=== PATIENT | male | born 1965 | race African-American/Black ===

== ENCOUNTER 2023-12-02 11:47 | Emergency (ER) | payer OTHER ==
[~2023-12-02] VITALS: Ht 175.3 cm; Wt 90.4 kg
[2023-12-02] MEDS ORDERED: CEPH500C PO (12:52)
[2023-12-02] MEDS ORDERED: TRIA0.02 TOP (12:52)
[2023-12-02 12:54] VITALS: BP 139/81; PULSE 83; RESP 18; TEMP 98.2; O2SAT 97
== END 2023-12-02 13:22 | disposition home or self-care (01) ==
LOC: ER 11:47
DX: S40.862A Insect bite (nonvenomous) of left upper arm, initial encounter (principal); S40.861A Insect bite (nonvenomous) of right upper arm, initial encounter; S10.96XA Insect bite of unspecified part of neck, initial encounter; S20.462A Insect bite (nonvenomous) of left back wall of thorax, initial encounter; T78.40XA Allergy, unspecified, initial encounter; I10 Essential (primary) hypertension; W57.XXXA Bitten or stung by nonvenomous insect and other nonvenomous arthropods, initial encounter; Y93.89 Activity, other specified; Y92.89 Other specified places as the place of occurrence of the external cause; Y99.8 Other external cause status

== ENCOUNTER 2024-10-22 14:59 | Inpatient (IN) | payer OTHER ==
[~2024-10-22] VITALS: Ht 177.8 cm; Wt 86.2 kg
[~2024-10-22 14:59] MED LIST: CEPH500C PO; TRIA0.02 TOP
--- NOTE | 2024-10-22 15:05 | ED.PDOC ---
History of Present Illness HPI Comments 56-year-old male brought by paramedics because of abdominal pain which started last night after food. Abdominal pain associated nausea vomiting. He states that he also has chest discomfort along with shortness a breath. History of CHF three heart surgeries with a valve replacement hypertension. Denies any other symptoms. Time Seen by MD: 15:00 Reviewed Notes: Nurses Notes, Medications, Allergies Information Source: Patient, Emergency Med Personnel Mode of Arrival: EMS Severity: Moderate Timing: Days Duration: Since onset Past Medical History PAST MEDICAL HISTORY: CAD, CHF, HTN Surgical History: Denies all surgeries Social History Smoker: Non-Smoker Alcohol: Denies ETOH Use Drugs: Denies Drug Use Constitutional: denies: chills, diaphoresis, fatigue, fever, malaise, sweats, weakness, others EENTM: denies: blurred vision, double vision, ear bleeding, ear discharge, ear drainage, ear pain, ear ringing, eye pain, eye redness, hearing loss, mouth pain, mouth swelling, nasal discharge, nose bleeding, nose congestion, nose pain, photophobia, tearing, throat pain, throat swelling, voice changes, others Respiratory: reports: shortness of breath; denies: cough, hemoptysis, orthopnea, SOB at rest, SOB with excertion, stridor, wheezing, others Cardiovascular: reports: chest pain; denies: dizzy spells, diaphoresis, Dyspnea on exertion, edema, irregular heart beat, left arm pain, lightheadedness, palpitations, PND, syncope, others Gastrointestinal: reports: abdominal pain, nausea, vomiting; denies: abdomen distended, blood streaked bowels, constipated, diarrhea, dysphagia, difficulty swallowing, hematemesis, melena, poor appetite, poor fluid intake, rectal bleeding, rectal pain, others Genitourinary: denies: burning, dysuria, flank pain, frequency, hematuria, incontinence, penile discharge, penile sore, pain, testicle pain, testicle swelling, urgency, others Neurological: denies: dizziness, fainting, headache, left sided numbness, left sided weakness, numbness, paresthesia, pre-existing deficit, right sided numbness, right sided weakness, seizure, speech problems, tingling, tremors, weakness, others Musculoskeletal: denies: back pain, gout, joint pain, joint swelling, muscle pain, muscle stiffness, neck pain, others Integumetry: denies: bruises, change in color, change in hair/nails, dryness, laceration, lesions, lumps, rash, wounds, others Allergic/Immunocompromised: denies: Difficulty Healing, Frequent Infections, Hives, Itching, others Hematologic/Lymphatic: denies: anemia, blood clots, easy bleeding, easy bruising, swollen glands, others Endocrine: denies: excessive hunger, excessive sweating, excessive thirst, excessive urination, flushing, intolerance to cold, intolerance to heat, unexplained weight gain, unexplained weight loss, others Psychiatric: denies: anxiety, bipolar disorder, depression, hopeless, panic disorder, schizophrenia, sleepless, suicidal, others Physical Exam General Appearance: Moderate Distress HEENT: Normal ENT Inspection, Pharynx Normal, TMs Normal Neck: Full Range of Motion, Non-Tender, Normal, Normal Inspection Respiratory: Other (Coarse breath sounds) Cardiovascular: No Edema, No JVD, No Murmur, No Gallop, Normal Peripheral Pulses, Regular Rate/Rhythm Breast Exam: Deferred Gastrointestinal: No Organomegaly, Non Tender, No Pulsatile Mass, Normal Bowel Sounds, Soft Genitalia: Deferred Pelvic: Deferred Rectal: Deferred Extremities: No calf tenderness, Normal capillary refill, Normal inspection, Normal range of motion, Non-tender, No pedal edema Musculoskeletal : Apperance: Normal Neurologic: Alert, No Motor Deficits, No Sensory Deficits Cerebellar Function: Normal Reflexes: NOT DONE Skin: Normal Color Peripheral Pulses: 3+ Radial (R), 3+ Radial (L) Lymphatic: No Adenopathy Was a procedure done? Was a procedure done?: No Differential Dx Considerations may include: CHF Electrolyte imbalance X-Ray, Labs, Meds, VS Patient alert. Complaining of chest pain shortness a breath abdominal pain nausea vomiting. Vitals stable. Answering questions. Possible gastroenteritis. History of coronary artery disease. States that he is taking a water pill. Valve surgery. Placed on oxygen. Reviewed his previous visit. Explained to the patient. Continue monitoring. Time of 1ST Reevaluation: 15:04 Reevaluation 1ST: Unchanged Patient Education/Counseling: Diagnosis, Treatment, Prognosis Family Education/Counseling: No Family Present SEPSIS Sepsis Screen Physician Orders Troponin-I Hs (10/22/24 15:00) Complete Blood Count (10/22/24 15:00) B-Type Natriuretic Peptide (10/22/24 15:00) Chest Portable (10/22/24 15:00) Urinalysis (10/22/24 15:00) Basic Metabolic Panel (10/22/24 15:00) Departure 1 Departure Time of Disposition: 15:04 Impression: Primary Impression: CHF (congestive heart failure) Qualified Codes: I50.43 - Acute on chronic combined systolic (congestive) and diastolic (congestive) heart failure Additional Impression: Gastroenteritis Disposition: ADMITTED INPATIENT Admit to: Med Surg Condition: Guarded Critical Care Note Critical Care Time?: Yes (90 min-critical care time only) Stability Stability form required: No Heart Score Heart Score: Heart Score Response (Comments) Value History Slightly Suspicious 0 EKG Normal 0 Age 45-64 1 Risk Factors >3 or Hx ASHD 2 Troponin Normal limit 0 Total 3 ERIK FREEMAN MD Oct 22, 2024 15:05
[2024-10-22 15:16] LABS: Hematocrit 44.4 % (41.0-53.0); Hemoglobin 15.2 g/dL (13.5-17.5); Mean Corpuscular Hemoglobin 32.2 pg (28.0-32.0); Mean Corpuscular Volume 94.1 fL (80.0-100.0); Nucleated Red Blood Cells % 0.0 %
[2024-10-22 15:24] LABS: Chloride 104 mmol/L (98-107); Potassium 3.6 mmol/L (3.5-5.1); Sodium 142 mmol/L (136-145)
[2024-10-22 15:25] LABS: Anion Gap 14 (5-15); Carbon Dioxide 24 mmol/L (20-31)
[2024-10-22 15:26] LABS: Calcium 10.0 mg/dL (8.7-10.4)
[2024-10-22 15:31] LABS: BUN/Creatinine Ratio 14.7 (10.0-20.0); Blood Urea Nitrogen 14 mg/dL (9-23); Glucose 134 mg/dL (74-106)
--- NOTE | 2024-10-22 15:48 | DVH ---
XY CHEST PORTABLE, HISTORY: sob COMPARISON: None None TECHNICAL DATA: 1 view of the chest was obtained. FINDINGS: Lines and tubes: None Cardiomediastinal silhouette: normal Pulmonary vasculature: normal Lung expansion: normal Lung airspace: Right basilar airspace opacity. Lung interstitium: normal Pleura: small right effusion. Pneumothorax: no Bones: Unremarkable Other: A prosthetic heart valve is seen. IMPRESSION: Right basilar airspace opacity. Small right effusion.
[2024-10-22] MEDS: ONDANSETRON HCL 4 MG/2 ML VIAL IV ONE (17:58)
[2024-10-22 18:03] LABS: Urine Protein, UAD 1+ (Negative)
[2024-10-22 18:45] VITALS: PULSE 87; RESP 20; O2SAT 97
[2024-10-22] MEDS ORDERED: DOCUSATE SOD 100 MG CAP PO PRN (18:45)
[2024-10-22] MEDS ORDERED: ACETAMINOPHEN 325 MG TAB PO PRN (18:45)
[2024-10-22] MEDS: LACTATED RINGER'S 1,000 ML IV ONE (18:45)
--- NOTE | 2024-10-22 18:51 | DVHHP2 ---
Admitting Diagnosis: Diarrhea History of Present Illness 56-year-old male brought by paramedics because of abdominal pain which started last night after food. Abdominal pain associated nausea vomiting. He states that he also has chest discomfort along with shortness a breath. History of CHF three heart surgeries with a valve replacement hypertension. Denies any other symptoms. PAST MEDICAL HISTORY: CAD, CHF, HTN Surgical History: Denies all surgeries Social History Smoker: Non-Smoker Alcohol: Denies ETOH Use Drugs: Denies Drug Use Allergies: Coded Allergies: NO KNOWN ALLERGIES (Unverified , 02/21/13) Home Meds Active Scripts Cephalexin Monohydrate (Cephalexin) 500 Mg Cap, 1 CAP PO QID, #32 CAP Prov:MICHAEL GOODSON 12/02/23 Triamcinolone Acetonide (Triamcinolone Acetonide) 0.025 % Cre, 1 APPLIC TOP BID, #30 GRAMS Prov:MICHAEL GOODSON 12/02/23 Current Medications Current Medications Medications (Trade) Dose Ordered Sig/Riley Route PRN Reason Start Time Stop Time Status Last Admin Ceftriaxone Sodium 50 ml @ 100 mls/hr DAILY IV 10/22/24 18:45 UNV Metronidazole 100 ml @ 100 mls/hr Q8H IV 10/22/24 18:45 UNV Sodium Chloride (Saline Lock Ns) 10 ml Q8HR IV 10/22/24 22:00 UNV Docusate Sodium (Colace Capsule) 100 mg BIDPRN PRN PO FOR CONSTIPATION 10/22/24 18:45 UNV Acetaminophen (Tylenol Tablet) 650 mg Q6HP PRN PO PAIN SCALE 1-3 OR TEMP>100.4 10/22/24 18:45 UNV Acetaminophen/ Hydrocodone Bitart ([place] 5/325MG Tab) 1 tab Q4HP PRN PO MODERATE PAIN (4-6 PAIN SCALE) 10/22/24 18:45 UNV Ondansetron HCl (Zofran) 4 mg Q4HP PRN IV NAUSEA / VOMITING 10/22/24 18:45 UNV Enoxaparin Sodium (Lovenox) 40 mg DAILY SC 10/23/24 10:00 UNV Vital Signs Vital Signs Date Time Temp Pulse Resp B/P (MAP) Pulse Ox O2 Delivery O2 Flow Rate FiO2 10/22/24 17:58 154/108 10/22/24 17:31 87 20 97 Room Air 10/22/24 17:31 97.4 97.4 Physical Exam Generally-59 years old male, well nourished well developed. Distress HEENT-atraumatic, normocephalic Heart-regular rate and rhythm Lungs decreased breath sounds bilaterally lower lung lim Abdomen soft, tender to palpate, nondistended Musculoskeletal-no edema cyanosis Neuro-AO x3, no focal deficit SEPSIS Sepsis Screen Date sepsis recognized/suspect: Oct 22, 2024 Time Sepsis recognized/suspect: 1731 Recent Procedure: No On Antibiotic Therapy: No Respiratory Rate >20: No Heart Rate >90: No Temp<36 C (96.8 F) or >38.3 C: No SBP <90 or MAP <65 mmHG: No New Acute Mental Status Change: No Is the patient on CPAP, BIPAP,: No Physician Orders Chest Portable (10/22/24 15:16) Ct Ab Pel Wo Con-No Oral Or Iv (10/22/24 18:37) C-Reactive Protein (10/22/24 18:37) Ceftriaxone 1gm/50ml D5w (Rocephin) (10/22/24 18:45) Metronidazole 500mg/100ml (Flagyl 500mg/ (10/22/24 18:45) Comprehensive Metabolic Panel (10/23/24 05:00) Comprehensive Metabolic Panel (10/24/24 05:00) Comprehensive Metabolic Panel (10/25/24 05:00) Comprehensive Metabolic Panel (10/26/24 05:00) Comprehensive Metabolic Panel (10/27/24 05:00) Complete Blood Count (10/23/24 05:00) Complete Blood Count (10/24/24 05:00) Complete Blood Count (10/25/24 05:00) Complete Blood Count (10/26/24 05:00) Complete Blood Count (10/27/24 05:00) Admit (10/22/24 18:37) Code Status (10/22/24 18:37) Vital Signs .PER UNIT PROTOCOL (10/22/24 18:37) Review Orders With Adm. (10/22/24 18:37) Encourage Activity As Tolerate (10/22/24 18:37) Regular Diet (10/23/24 Breakfast) Sodium Chloride Lock (Saline Lock Ns) (10/22/24 22:00) Docusate Sodium Capsule (Colace Capsule) (10/22/24 18:45) Acetaminophen Tablet (Tylenol Tablet) (10/22/24 18:45) Notify Md Of Changes From Base (10/22/24 18:37) Advance Directive (10/22/24 18:37) Patient Condition (10/22/24 18:37) Allergies (10/22/24 18:37) Hydrocodone-Acet 5/325mg Tab ([place] 32 (10/22/24 18:45) Ondansetron Hcl (Zofran) (10/22/24 18:45) Enoxaparin Sodium (Lovenox) (10/23/24 10:00) Drug Screen (10/22/24 18:37) Lactated Ringer's (10/22/24 18:45) Vital Signs Date Time Temp Pulse Resp B/P (MAP) Pulse Ox O2 Delivery O2 Flow Rate FiO2 10/22/24 17:58 154/108 10/22/24 17:31 87 20 97 Room Air 10/22/24 17:31 97.4 87 20 154/108 (123) 97 97.4 10/22/24 15:10 98.0 68 18 156/93 (114) 97 98.0 Laboratory Tests Test 10/22/24 15:07 White Blood Count 9.3 10^3/uL (4.4-10.8) Medications Medications Dose Ordered Sig/Riley Route Start Time Stop Time Status Last Admin Dose Admin Clonidine HCl 0.2 mg ONCE ONCE PO 10/22/24 17:45 10/22/24 17:50 DC 10/22/24 17:58 Ondansetron HCl 4 mg ONCE ONCE IV 10/22/24 17:45 10/22/24 17:50 DC 10/22/24 17:58 Results Labs Test 10/22/24 15:07 10/22/24 15:00 Range/Units White Blood Count 9.3 4.4-10.8 10^3/uL Red Blood Count 4.72 4.5-5.90 10^6/uL Hemoglobin 15.2 13.5-17.5 g/dL Hematocrit 44.4 41.0-53.0 % Mean Corpuscular Volume 94.1 80.0-100.0 fL Mean Corpuscular Hemoglobin 32.2 H 28.0-32.0 pg Mean Corpuscular Hemoglobin Concent 34.3 32.0-36.0 g/dL Red Cell Distribution Width 14.9 H 11.8-14.3 % Platelet Count 180 140-450 10^3/uL Mean Platelet Volume 8.2 6.9-10.8 fL Neutrophils (%) (Auto) 90.6 H 37.0-80.0 % Lymphocytes (%) (Auto) 6.2 L 10.0-50.0 % Monocytes (%) (Auto) 2.5 0.0-12.0 % Eosinophils (%) (Auto) 0.4 0.0-7.0 % Basophils (%) (Auto) 0.3 0.0-2.0 % Neutrophils # (Auto) 8.4 1.6-8.6 10 ^3/uL Lymphocytes # (Auto) 0.6 0.4-5.4 10 ^3/uL Monocytes # (Auto) 0.2 0-1.3 10 ^3/uL Eosinophils # (Auto) 0 0-0.8 10 ^3/uL Basophils # (Auto) 0 0-0.2 10 ^3/uL Nucleated Red Blood Cells 0.0 % Sodium Level 142 136-145 mmol/L Potassium Level 3.6 3.5-5.1 mmol/L Chloride Level 104 98-107 mmol/L Carbon Dioxide Level 24 20-31 mmol/L Anion Gap 14 5-15 Blood Urea Nitrogen 14 9-23 mg/dL Creatinine 0.95 0.700-1.30 mg/dL Glomerular Filtration Rate Calc 92 >90 mL/min BUN/Creatinine Ratio 14.7 10.0-20.0 Serum Glucose 134 H 74-106 mg/dL Calcium Level 10.0 8.7-10.4 mg/dL Troponin I High Sensitivity 8 </=54 ng/L B-Type Natriuretic Peptide 275.06 0-100 pg/mL Urine Color Light-yellow Yellow Urine Clarity Clear Clear Urine pH 7.0 5.0-9.0 Urine Specific [place] 1.018 1.001-1.035 Urine Protein 1+ H Negative Urine Ketones 2+ H Negative Urine Blood 1+ H Negative /uL Urine Nitrite Negative Negative Urine Bilirubin Negative Negative Urine Urobilinogen Normal Negative mg/dL Urine Leukocyte Esterase Negative Negative /uL Urine RBC 1 0 - 3 /hpf Urine Microscopic WBC 1 0-3 /HPF Urine Squamous Epithelial Cells Few <5 /hpf Urine Bacteria None seen None Seen /hpf Urine Glucose Normal Normal mg/dL Primary Diagnosis Abdomen pain rule out intra-abdominal infection Plan Check CT abdomen and pelvis to assess for intra-abdominal infection Start ceftriaxone, Flagyl. Check blood culture Check CRP, pro count stool culture Gentle hydration Resume home meds Full code Lovenox for DVT prophylaxis No GI prophylaxis needed Cardiac diet Plan discussed with: Patient Problems List: (1) Gastroenteritis Status: Acute Date of Service: Oct 22, 2024 Billing Provider: FIORELLA REDD MD Common Visit Codes: [id number] INP/OBS CARE (MOD), [id number] INP/OBS CARE (HIGH) FIORELLA REDD MD Oct 22, 2024 18:51
--- NOTE | 2024-10-22 19:31 | DVH ---
Exam: CT CT AB PEL WO CON-NO ORAL OR IV History: assess for intra-abdominal infection Comparison Study: None Technique: Multidetector spiral CT of the abdomen was performed from lung bases to pubic symphysis. Imaging was performed without IV contrast. Axial, coronal and sagittal multiplanar reformats were ob tained from the axial data set by the technologist. Radiation Dose : 1. Abdomen/Pelvis: CTDIvol 21 mGy, DLP 1177 mGy*cm. Findings: Evaluation of solid organs is limited due to lack of intravenous contrast use. Lung Bases: No acute or significant lung base finding. Normal heart size. No pleural or pericardial effusion. Liver: The liver is normal in size. No focal lesions. Gallbladder and Biliary Tree: Unremarkable Spleen: Unremarkable Pancreas: The pancreas is grossly normal in appearance. Adrenal Glands: Unremarkable Kidneys: Kidneys are grossly normal without calculi or hydronephrosis. Bladder: Grossly unremarkable for degree of distention. Bowel: The stomach is grossly normal in appearance. Concentric wall thickening throughout the transve rse colon and descending colon with adjacent fat stranding, possibly infectious/inflammatory colitis. The appendix is not visualized; however, no secondary findings of acute appendicitis identified. Ascites: Absent Lymphadenopathy: No mesenteric, retroperitoneal or periportal lymphadenopathy. Abdominal Wall and Mesentery: Unremarkable. Vasculature: The visualized abdominal aorta is normal in size and caliber. Evaluation of abdominal a nd pelvic vessels is limited due to lack of intravenous contrast. Pelvic Organs: Unremarkable Musculoskeletal: No aggressive focal bony lesions, acute fractures or dislocation. IMPRESSION: 1. Concentric wall thickening throughout the transverse colon and descending colon with adjacent fat stranding, possibly related to infectious/inflammatory colitis. Radiation optimization: All CT scans at this facility use at least one of these dose optimization jay hniques: automated exposure control mA and/or kV adjustment per patient size (includes targeted exam s where dose is matched to clinical indication) or iterative reconstruction.
[2024-10-22] MEDS: cefTRIAXone 1GM/50ML D5W 50 ML IV SCH (20:16)
[2024-10-22] MEDS: FUROSEMIDE 40 MG/4 ML VIAL IV SCH (20:19)
[2024-10-22] MEDS: SODIUM CHLOR 0.9% PF (SALINE LOCK) 10ML VIAL/SYR IV SCH (20:20)
[2024-10-22 22:00] VITALS: BP 125/84; PULSE 96; RESP 17; TEMP 98.2; O2SAT 93
[2024-10-22 22:01] VITALS: PULSE 96; RESP 17; O2SAT 93
[2024-10-22] MEDS: HYDROcodone-ACET 5/325MG TAB PO PRN (22:15)
[2024-10-22 22:23] LABS: Amphetamine Screen, Urine Neg (NEGATIVE); Barbiturate Scree,Urine Neg (NEGATIVE); Benzodiazephine Screen, Urine Neg (NEGATIVE); Cannabinoid Screen, Urine Pos (NEGATIVE); Cocaine Screen, Urine Neg (NEGATIVE); Opiate Scree,Urine Neg (NEGATIVE); Phencyclidine Screen, Urine Neg (NEGATIVE)
[2024-10-23] VITALS (7 sets, daily range): BP systolic 102–139; BP diastolic 57–90; PULSE 69–83; RESP 16–18; TEMP 97.8–98.5; O2SAT 95–97
[2024-10-23 05:40] LABS: Hematocrit 41.3 % (41.0-53.0); Hemoglobin 14.3 g/dL (13.5-17.5); Mean Corpuscular Hemoglobin 33.0 pg (28.0-32.0); Mean Corpuscular Volume 94.9 fL (80.0-100.0); Nucleated Red Blood Cells % 0.1 %
[2024-10-23 05:58] LABS: Alanine Aminotransferase 15 U/L (7-40); Albumin 4.5 g/dL (3.2-4.8); Alkaline Phosphatase 60 U/L (46-116); Anion Gap 11 (5-15); BUN/Creatinine Ratio 15.0 (10.0-20.0); Bilirubin, Total 0.8 mg/dL (0.2-1.0); Blood Urea Nitrogen 18 mg/dL (9-23); Calcium 9.8 mg/dL (8.7-10.4); Carbon Dioxide 28 mmol/L (20-31); Chloride 100 mmol/L (98-107); Sodium 139 mmol/L (136-145); Total Protein 7.4 g/dL (5.7-8.2)
[2024-10-23 06:00] LABS: Glucose 128 mg/dL (74-106); Potassium 3.0 mmol/L (3.5-5.1)
[2024-10-23] MEDS: ONDANSETRON HCL 4 MG/2 ML VIAL IV PRN (09:22)
[2024-10-23] MEDS: ENOXAPARIN SOD 40 MG/0.4 ML SYRINGE SC SCH (09:22)
[2024-10-23] MEDS ORDERED: POTASSIUM CHLORIDE 40 MEQ, LIDOCAINE 1% (LOCAL ANESTH.) 4 ML in SODIUM CHL 0.9% 250 ML IV ONE (10:30)
--- NOTE | 2024-10-23 10:35 | DVHPN2 ---
Subjective Continues to complain of nausea and vomiting with abdominal pain Reviewed: Care Plan, H&P, Labs, Medications, Previous Orders, Radiology Changes from previous H/P or p: No Changes Objective Vitals Vital Signs Date Time Temp Pulse Resp B/P (MAP) Pulse Ox O2 Delivery O2 Flow Rate FiO2 10/23/24 09:24 139/90 10/23/24 09:00 98.0 69 18 97 98.0 10/22/24 22:01 Room Air* 0 21 Intake/Output Intake and Output 10/23/24 07:00 Intake Total 500 ml Balance 500 ml Intake Oral 400 ml IV Total 100 ml # Voids 3 General Appearance: Alert, Oriented X3, Cooperative, mild distress HEENT: Atraumatic Lungs: Clear to auscultation, Normal air movement Cardiovascular: Regular rate, Normal S1, Normal S2, Other (Unable to appreciate prostatic heart sounds) Abdomen: Normal bowel sounds, Soft, Other (Diffuse tenderness) Extremities: No edema Neuro: Normal speech, Cranial nerves 3-12 NL Psych/Mental Status: Mental status NL, Mood NL Medications Current Medications Medications Dose Ordered Sig/Riley Route Start Time Stop Time Status Last Admin Dose Admin Ceftriaxone Sodium 50 ml @ 100 mls/hr DAILY IV 10/22/24 18:45 10/23/24 09:21 100 MLS/HR Metronidazole 100 ml @ 100 mls/hr Q8H IV 10/22/24 18:45 10/23/24 02:33 100 MLS/HR Sodium Chloride 10 ml Q8HR IV 10/22/24 22:00 10/23/24 06:09 10 ML Docusate Sodium 100 mg BIDPRN PRN PO 10/22/24 18:45 Acetaminophen 650 mg Q6HP PRN PO 10/22/24 18:45 Acetaminophen/ Hydrocodone Bitart 1 tab Q4HP PRN PO 10/22/24 18:45 10/23/24 09:24 1 TAB Ondansetron HCl 4 mg Q4HP PRN IV 10/22/24 18:45 10/23/24 09:22 4 MG Enoxaparin Sodium 40 mg DAILY SC 10/23/24 10:00 10/23/24 09:22 40 MG Furosemide 40 mg DAILY IV 10/22/24 19:00 10/22/24 20:19 40 MG Laboratory Results Laboratory Tests 10/23/24 05:20 Chemistry Test 10/22/24 15:07 10/23/24 05:20 Calcium Level 10.0 mg/dL (8.7-10.4) 9.8 mg/dL (8.7-10.4) Albumin 4.5 g/dL (3.2-4.8) Total Protein 7.4 g/dL (5.7-8.2) Cardiac Markers Test 10/22/24 15:07 B-Type Natriuretic Peptide 275.06 pg/mL (0-100) LFT Test 10/23/24 05:20 Alanine Aminotransferase (ALT) 15 U/L (7-40) Alkaline Phosphatase 60 U/L (46-116) Aspartate Amino Transferase (AST) 24 U/L (13-40) Total Bilirubin 0.8 mg/dL (0.2-1.0) Urinalysis Test 10/22/24 15:00 Urine Color Light-yellow (Yellow) Urine Clarity Clear (Clear) Urine pH 7.0 (5.0-9.0) Urine Specific [place] 1.018 (1.001-1.035) Urine Protein 1+ (Negative) H Urine Ketones 2+ (Negative) H Urine Blood 1+ /uL (Negative) H Urine Nitrite Negative (Negative) Urine Bilirubin Negative (Negative) Urine Urobilinogen Normal mg/dL (Negative) Urine Leukocyte Esterase Negative /uL (Negative) Urine RBC 1 /hpf (0 - 3) Urine Microscopic WBC 1 /HPF (0-3) Urine Squamous Epithelial Cells Few /hpf (<5) Urine Bacteria None seen /hpf (None Seen) Urine Glucose Normal mg/dL (Normal) Labs and/or images reviewed: Labs reviewed by me, Image(s) reviewed by me Assessment/Plan Assessment/Plan A 59-year-old male patient; with marijuana use disorder, congestive heart failure and valve replacement; who presented to the emergency department with abdominal pain, nausea, and vomiting after eating food. # Abdominal pain, nausea and vomiting due to colitis # Colitis; most likely infectious # Congestive heart failure with valve replacement; not in exacerbation # Hypokalemia due to GI losses # Overweight Continue IV antibiotics Advance diet as tolerated Reviewed abdomen/pelvis CT and chest x-ray Chest x-ray showed suspected right lower lobe obesity; the patient is with no respiratory symptoms/signs Continue pain management as needed Advised to follow up with Cardiology as outpatient Replace electrolytes as needed Counseled marijuana use cessation for 16 minutes Counseled the patient on the importance of adopting healthy lifestyle with diet and exercise in order to lose weight Stopped IV Lasix Continue monitoring Goals of care discussed with the patient for 20 minutes; full code Late Entry. This medical document was created using an electronic medical record system with computerized dictation system. Although this document has been carefully reviewed, there might still be some phonetic and typographical errors. These areas are purely typographical due to imperfections of the software programs, and do not reflect any compromise in the patient's medical care. Plan discussed with: Patient, Other (Nurse) Date of Service: Oct 23, 2024 Billing Provider: KWAKU MORA MD Common Visit Codes: [id number] INP/OBS CARE(HIGH) Secondary Visit Codes: [id number] CHNG SMOKING >10MIN (16 minutes for marijuana use cessation), [id number] CARE PLAN 30 MINUTES (20 minutes) KWAKU MORA MD Oct 23, 2024 10:35
[2024-10-23] MEDS: POTASSIUM EFFERVESENT TAB 25 MEQ PO ONE (12:04)
[2024-10-24 01:00] VITALS: BP 127/92; PULSE 86; RESP 16; TEMP 98.4; O2SAT 96
[2024-10-24 05:00] VITALS: BP 131/82; PULSE 76; RESP 18; TEMP 98; O2SAT 95
[2024-10-24 06:23] LABS: Hematocrit 42.3 % (41.0-53.0); Hemoglobin 14.5 g/dL (13.5-17.5); Mean Corpuscular Hemoglobin 32.6 pg (28.0-32.0); Mean Corpuscular Volume 94.9 fL (80.0-100.0); Nucleated Red Blood Cells % 0.0 %
[2024-10-24 06:46] LABS: Alanine Aminotransferase 17 U/L (7-40); Alkaline Phosphatase 59 U/L (46-116); Anion Gap 8 (5-15); BUN/Creatinine Ratio 11.8 (10.0-20.0); Blood Urea Nitrogen 14 mg/dL (9-23); Calcium 9.7 mg/dL (8.7-10.4); Carbon Dioxide 30 mmol/L (20-31); Chloride 101 mmol/L (98-107); Potassium 3.6 mmol/L (3.5-5.1); Sodium 139 mmol/L (136-145)
[2024-10-24 06:47] LABS: Albumin 4.2 g/dL (3.2-4.8); Total Protein 7.0 g/dL (5.7-8.2)
[2024-10-24 06:48] LABS: Bilirubin, Total 0.7 mg/dL (0.2-1.0)
[2024-10-24 06:55] LABS: Glucose 109 mg/dL (74-106)
--- NOTE | 2024-10-24 08:15 | DVHPN2 ---
Subjective Continues to complain of nausea and vomiting with abdominal pain Reviewed: Care Plan, H&P, Labs, Medications, Previous Orders, Radiology Changes from previous H/P or p: No Changes Objective Vitals Vital Signs Date Time Temp Pulse Resp B/P (MAP) Pulse Ox O2 Delivery O2 Flow Rate FiO2 10/24/24 05:00 98.0 76 18 131/82 (98) 95 98.0 10/23/24 20:00 Room Air* 0 21 Intake/Output Intake and Output 10/24/24 07:00 Intake Total 2285 ml Output Total 380 ml Balance 1905 ml Intake Oral 2035 ml IV Total 250 ml Output Urine Total 380 ml # Voids 3 General Appearance: Alert, Oriented X3, Cooperative, mild distress HEENT: Atraumatic Lungs: Clear to auscultation, Normal air movement Cardiovascular: Regular rate, Normal S1, Normal S2, Other (Unable to appreciate prostatic heart sounds) Abdomen: Normal bowel sounds, Soft, Other (Diffuse tenderness) Extremities: No edema Neuro: Normal speech, Cranial nerves 3-12 NL Psych/Mental Status: Mental status NL, Mood NL Medications Current Medications Medications Dose Ordered Sig/Riley Route Start Time Stop Time Status Last Admin Dose Admin Ceftriaxone Sodium 50 ml @ 100 mls/hr DAILY IV 10/22/24 18:45 10/23/24 09:21 100 MLS/HR Metronidazole 100 ml @ 100 mls/hr Q8H IV 10/22/24 18:45 10/24/24 02:16 100 MLS/HR Sodium Chloride 10 ml Q8HR IV 10/22/24 22:00 10/24/24 05:23 10 ML Docusate Sodium 100 mg BIDPRN PRN PO 10/22/24 18:45 Acetaminophen 650 mg Q6HP PRN PO 10/22/24 18:45 Acetaminophen/ Hydrocodone Bitart 1 tab Q4HP PRN PO 10/22/24 18:45 10/23/24 09:24 1 TAB Ondansetron HCl 4 mg Q4HP PRN IV 10/22/24 18:45 10/23/24 09:22 4 MG Enoxaparin Sodium 40 mg DAILY SC 10/23/24 10:00 10/23/24 09:22 40 MG Laboratory Results Laboratory Tests 10/24/24 05:45 Chemistry Test 10/24/24 05:45 Albumin 4.2 g/dL (3.2-4.8) Calcium Level 9.7 mg/dL (8.7-10.4) Total Protein 7.0 g/dL (5.7-8.2) LFT Test 10/24/24 05:45 Alanine Aminotransferase (ALT) 17 U/L (7-40) Alkaline Phosphatase 59 U/L (46-116) Aspartate Amino Transferase (AST) 22 U/L (13-40) Total Bilirubin 0.7 mg/dL (0.2-1.0) Urinalysis Test 10/22/24 15:00 Urine Color Light-yellow (Yellow) Urine Clarity Clear (Clear) Urine pH 7.0 (5.0-9.0) Urine Specific [place] 1.018 (1.001-1.035) Urine Protein 1+ (Negative) H Urine Ketones 2+ (Negative) H Urine Blood 1+ /uL (Negative) H Urine Nitrite Negative (Negative) Urine Bilirubin Negative (Negative) Urine Urobilinogen Normal mg/dL (Negative) Urine Leukocyte Esterase Negative /uL (Negative) Urine RBC 1 /hpf (0 - 3) Urine Microscopic WBC 1 /HPF (0-3) Urine Squamous Epithelial Cells Few /hpf (<5) Urine Bacteria None seen /hpf (None Seen) Urine Glucose Normal mg/dL (Normal) Labs and/or images reviewed: Labs reviewed by me, Image(s) reviewed by me Assessment/Plan Assessment/Plan A 59-year-old male patient; with marijuana use disorder, congestive heart failure and valve replacement; who presented to the emergency department with abdominal pain, nausea, and vomiting after eating food. # Abdominal pain, nausea and vomiting due to colitis # Colitis; most likely infectious # Congestive heart failure with valve replacement; not in exacerbation # Hypokalemia due to GI losses # Overweight Continue IV antibiotics Unable to advance diet at this time due to abdominal pain, nausea and vomiting; counseled the patient to try taking small amount of food void abdominal pain/nausea/during [place] Reviewed abdomen/pelvis CT and chest x-ray Chest x-ray showed suspected right lower lobe opacity about abdomen/pelvis CT does not show any opacity in lung bases; the patient is with no respiratory symptoms/signs Continue pain management as needed Advised to follow up with Cardiology as outpatient Replace electrolytes as needed Counseled marijuana use cessation Counseled the patient on the importance of adopting healthy lifestyle with diet and exercise in order to lose weight Stopped IV Lasix Continue monitoring Late Entry. This medical document was created using an electronic medical record system with computerized dictation system. Although this document has been carefully reviewed, there might still be some phonetic and typographical errors. These areas are purely typographical due to imperfections of the software programs, and do not reflect any compromise in the patient's medical care. Plan discussed with: Patient, Other (Nurse) My Orders Orders - KWAKU MORA MD Procedure Category Date Status Time Basic Metabolic Panel LAB 10/25/24 Verified 04:00 Date of Service: Oct 24, 2024 Billing Provider: KWAKU MORA MD Common Visit Codes: [id number] INP/OBS CARE(HIGH) KWAKU MORA MD Oct 24, 2024 08:15
[2024-10-24 09:00] VITALS: BP 134/97; PULSE 18; PULSE 96; RESP 18; RESP 96; TEMP 98.3; O2SAT 96
[2024-10-24 12:37] VITALS: BP 147/97; PULSE 84; RESP 18; TEMP 98.4; O2SAT 97
[2024-10-24 16:41] VITALS: BP 121/75; PULSE 77; RESP 16; TEMP 98.2; O2SAT 99
[2024-10-24 21:00] VITALS: BP 123/83; PULSE 86; RESP 16; TEMP 98.5; O2SAT 100
[2024-10-25 01:00] VITALS: BP 141/88; PULSE 68; RESP 16; TEMP 98.5; O2SAT 100
[2024-10-25 05:00] VITALS: BP 134/86; PULSE 77; RESP 16; TEMP 98.2; O2SAT 95
[2024-10-25 06:52] LABS: Calcium 9.2 mg/dL (8.7-10.4); Chloride 104 mmol/L (98-107); Sodium 140 mmol/L (136-145)
[2024-10-25 06:53] LABS: Anion Gap 8 (5-15); Carbon Dioxide 28 mmol/L (20-31)
[2024-10-25 06:57] LABS: Potassium 3.4 mmol/L (3.5-5.1)
[2024-10-25 06:58] LABS: BUN/Creatinine Ratio 7.5 (10.0-20.0); Glucose 98 mg/dL (74-106)
[2024-10-25 07:01] LABS: Blood Urea Nitrogen 8 mg/dL (9-23)
[2024-10-25 09:00] VITALS: BP 140/88; PULSE 80; RESP 17; TEMP 98.1; O2SAT 96
[2024-10-25] MEDS ORDERED: METR-344 PO (11:52)
[2024-10-25] MEDS ORDERED: AUG875T PO (11:52)
--- NOTE | 2024-10-25 11:53 | DVHPN2 ---
Subjective Feeling much better this morning with no nausea/vomiting/abdominal pain Reviewed: Care Plan, H&P, Labs, Medications, Previous Orders, Radiology Changes from previous H/P or p: Changes Objective Vitals Vital Signs Date Time Temp Pulse Resp B/P (MAP) Pulse Ox O2 Delivery O2 Flow Rate FiO2 10/25/24 05:00 98.2 77 16 134/86 (102) 95 98.2 10/24/24 20:00 Room Air* 0 21 Intake/Output Intake and Output 10/25/24 07:00 Intake Total 2060 ml Balance 2060 ml Intake Oral 1710 ml IV Total 350 ml # Voids 4 # Bowel Movements 3 General Appearance: Alert, Oriented X3, Cooperative, mild distress HEENT: Atraumatic Lungs: Clear to auscultation, Normal air movement Cardiovascular: Regular rate, Normal S1, Normal S2, Other (Unable to appreciate prostatic heart sounds) Abdomen: Normal bowel sounds, Soft, No tenderness Extremities: No edema Neuro: Normal speech, Cranial nerves 3-12 NL Psych/Mental Status: Mental status NL, Mood NL Medications Current Medications Medications Dose Ordered Sig/Riley Route Start Time Stop Time Status Last Admin Dose Admin Ceftriaxone Sodium 50 ml @ 100 mls/hr DAILY IV 10/22/24 18:45 10/25/24 10:55 100 MLS/HR Metronidazole 100 ml @ 100 mls/hr Q8H IV 10/22/24 18:45 10/25/24 10:55 100 MLS/HR Sodium Chloride 10 ml Q8HR IV 10/22/24 22:00 10/25/24 06:15 10 ML Docusate Sodium 100 mg BIDPRN PRN PO 10/22/24 18:45 Acetaminophen 650 mg Q6HP PRN PO 10/22/24 18:45 Acetaminophen/ Hydrocodone Bitart 1 tab Q4HP PRN PO 10/22/24 18:45 10/24/24 09:16 1 TAB Ondansetron HCl 4 mg Q4HP PRN IV 10/22/24 18:45 10/24/24 09:15 4 MG Enoxaparin Sodium 40 mg DAILY SC 10/23/24 10:00 10/25/24 10:54 40 MG Laboratory Results Laboratory Tests 10/24/24 05:45 10/25/24 06:06 Chemistry Test 10/25/24 06:06 Calcium Level 9.2 mg/dL (8.7-10.4) Urinalysis Test 10/22/24 15:00 Urine Color Light-yellow (Yellow) Urine Clarity Clear (Clear) Urine pH 7.0 (5.0-9.0) Urine Specific [place] 1.018 (1.001-1.035) Urine Protein 1+ (Negative) H Urine Ketones 2+ (Negative) H Urine Blood 1+ /uL (Negative) H Urine Nitrite Negative (Negative) Urine Bilirubin Negative (Negative) Urine Urobilinogen Normal mg/dL (Negative) Urine Leukocyte Esterase Negative /uL (Negative) Urine RBC 1 /hpf (0 - 3) Urine Microscopic WBC 1 /HPF (0-3) Urine Squamous Epithelial Cells Few /hpf (<5) Urine Bacteria None seen /hpf (None Seen) Urine Glucose Normal mg/dL (Normal) Labs and/or images reviewed: Labs reviewed by me, Image(s) reviewed by me Assessment/Plan Assessment/Plan A 59-year-old male patient; with marijuana use disorder, congestive heart failure and valve replacement; who presented to the emergency department with abdominal pain, nausea, and vomiting after eating food. # Abdominal pain, nausea and vomiting due to colitis # Colitis; most likely infectious # Congestive heart failure with valve replacement; not in exacerbation # Hypokalemia due to GI losses # Overweight Received IV antibiotics; discharged oral antibiotics To advance diet as tolerated Reviewed abdomen/pelvis CT and chest x-ray Chest x-ray showed suspected right lower lobe opacity about abdomen/pelvis CT does not show any opacity in lung bases; the patient is with no respiratory symptoms/signs Was on pain medications while inpatient; need for outpatient Advised to follow up with Cardiology as outpatient Potassium was replaced before discharge Counseled marijuana use cessation Counseled the patient on the importance of adopting healthy lifestyle with diet and exercise in order to lose weight To follow up with Dr. Mora next Wednesday discharge clinic Late Entry. This medical document was created using an electronic medical record system with computerized dictation system. Although this document has been carefully reviewed, there might still be some phonetic and typographical errors. These areas are purely typographical due to imperfections of the software programs, and do not reflect any compromise in the patient's medical care. Plan discussed with: Patient, Other (Nurse) Date of Service: Oct 25, 2024 Billing Provider: KWAKU MORA MD Common Visit Codes: [id number] INP/OBS CARE(MOD) KWAKU MORA MD Oct 25, 2024 11:53
--- NOTE | 2024-10-25 11:56 | DVHDS2 ---
Discharge Summary Date of Admission Oct 22, 2024 at 18:37 Date of Discharge: Oct 25, 2024 Admitting Diagnosis Abdominal pain with nausea and vomiting Labs/Diagnostic Data: Laboratory Results Test 10/25/24 06:06 10/24/24 05:45 10/23/24 05:20 10/22/24 15:07 Sodium Level 140 mmol/L (136-145) Potassium Level 3.4 mmol/L (3.5-5.1) Chloride Level 104 mmol/L (98-107) Carbon Dioxide Level 28 mmol/L (20-31) Anion Gap 8 (5-15) Blood Urea Nitrogen 8 mg/dL (9-23) Creatinine 1.06 mg/dL (0.700-1.30) Glomerular Filtration Rate Calc 80 mL/min (>90) BUN/Creatinine Ratio 7.5 (10.0-20.0) Serum Glucose 98 mg/dL (74-106) Calcium Level 9.2 mg/dL (8.7-10.4) White Blood Count 6.6 10^3/uL (4.4-10.8) Red Blood Count 4.45 10^6/uL (4.5-5.90) Hemoglobin 14.5 g/dL (13.5-17.5) Hematocrit 42.3 % (41.0-53.0) Mean Corpuscular Volume 94.9 fL (80.0-100.0) Mean Corpuscular Hemoglobin 32.6 pg (28.0-32.0) Mean Corpuscular Hemoglobin Concent 34.3 g/dL (32.0-36.0) Red Cell Distribution Width 14.9 % (11.8-14.3) Platelet Count 164 10^3/uL (140-450) Mean Platelet Volume 8.2 fL (6.9-10.8) Neutrophils (%) (Auto) 54.5 % (37.0-80.0) Lymphocytes (%) (Auto) 28.4 % (10.0-50.0) Monocytes (%) (Auto) 15.3 % (0.0-12.0) Eosinophils (%) (Auto) 1.3 % (0.0-7.0) Basophils (%) (Auto) 0.5 % (0.0-2.0) Neutrophils # (Auto) 3.6 10 ^3/uL (1.6-8.6) Lymphocytes # (Auto) 1.9 10 ^3/uL (0.4-5.4) Monocytes # (Auto) 1.0 10 ^3/uL (0-1.3) Eosinophils # (Auto) 0.1 10 ^3/uL (0-0.8) Basophils # (Auto) 0 10 ^3/uL (0-0.2) Nucleated Red Blood Cells 0.0 % Total Bilirubin 0.7 mg/dL (0.2-1.0) Aspartate Amino Transferase (AST) 22 U/L (13-40) Alanine Aminotransferase (ALT) 17 U/L (7-40) Alkaline Phosphatase 59 U/L (46-116) Total Protein 7.0 g/dL (5.7-8.2) Albumin 4.2 g/dL (3.2-4.8) Magnesium Level 1.9 mg/dL (1.6-2.6) Troponin I High Sensitivity 8 ng/L (</=54) C-Reactive Protein High Sensitivity 0.47 mg/dL (<1.0) B-Type Natriuretic Peptide 275.06 pg/mL (0-100) Test 10/22/24 15:00 Urine Color Light-yellow (Yellow) Urine Clarity Clear (Clear) Urine pH 7.0 (5.0-9.0) Urine Specific [place] 1.018 (1.001-1.035) Urine Protein 1+ (Negative) Urine Ketones 2+ (Negative) Urine Blood 1+ /uL (Negative) Urine Nitrite Negative (Negative) Urine Bilirubin Negative (Negative) Urine Urobilinogen Normal mg/dL (Negative) Urine Leukocyte Esterase Negative /uL (Negative) Urine RBC 1 /hpf (0 - 3) Urine Microscopic WBC 1 /HPF (0-3) Urine Squamous Epithelial Cells Few /hpf (<5) Urine Bacteria None seen /hpf (None Seen) Urine Glucose Normal mg/dL (Normal) Urine Opiates Screen Neg (NEGATIVE) Urine Fentanyl Screen Neg (NEGATIVE) Urine Barbiturates Screen Neg (NEGATIVE) Urine Phencyclidine Screen Neg (NEGATIVE) Urine Amphetamines Screen Neg (NEGATIVE) Urine Benzodiazepines Screen Neg (NEGATIVE) Urine Cocaine Screen Neg (NEGATIVE) Urine Cannabinoids Screen Pos (NEGATIVE) Other Laboratory Tests 10/25/24 06:06 10/24/24 05:45 Brief Hx & Hospital Course: A 59-year-old male patient; with marijuana use disorder, congestive heart failure and valve replacement; who presented to the emergency department with abdominal pain, nausea, and vomiting after eating food. # Abdominal pain, nausea and vomiting due to colitis # Colitis; most likely infectious # Congestive heart failure with valve replacement; not in exacerbation # Hypokalemia due to GI losses # Overweight Received IV antibiotics; discharged oral antibiotics To advance diet as tolerated Reviewed abdomen/pelvis CT and chest x-ray Chest x-ray showed suspected right lower lobe opacity about abdomen/pelvis CT does not show any opacity in lung bases; the patient is with no respiratory symptoms/signs Was on pain medications while inpatient; need for outpatient Advised to follow up with Cardiology as outpatient Potassium was replaced before discharge Counseled marijuana use cessation Counseled the patient on the importance of adopting healthy lifestyle with diet and exercise in order to lose weight To follow up with Dr. Mora next Wednesday discharge clinic Late Entry. This medical document was created using an electronic medical record system with computerized dictation system. Although this document has been carefully reviewed, there might still be some phonetic and typographical errors. These areas are purely typographical due to imperfections of the software programs, and do not reflect any compromise in the patient's medical care. Condition at Discharge: Good Final Diagnosis/Problems List Colitis Rest of diagnoses as above Discharge Disposition: Home Discharge Instruct/Medications Diet: See Comment Diet comment: To advance diet as tolerated Activity: No Restrictions, As Tolerated Follow Up/Referral: Dr. Mora/Dr. Peraza at 08:45 am on Wednesday10/30/2024 at [facility] Medications: Augmentin and Flagyl Scheduled Amoxicillin & Pot Clavulanate (Augmentin Tablet), 875 MG PO BID Metronidazole (Flagyl), 500 MG PO TID Discontinued Medications Cephalexin Monohydrate (Cephalexin), 1 CAP PO QID Triamcinolone Acetonide (Triamcinolone Acetonide), 1 APPLIC TOP BID Discharge Statement: "Patient was advised to return to the ER or call 911 if any headaches, dizziness, shortness of breath, chest pain, abdominal pain, bleeding, fevers, or worsening of medical condition. Patient was counseled about treatment plan, medications, possible side effects, patientverbalized understanding. All questions were answered to the best of my ability. This discharge took greater then 30 minutes in planning, reviewing documentation, counseling the patient, and discussing with other team members." ASSESSMENT ASSESSMENT Assessment Date of Service: Oct 25, 2024 Billing Provider: KWAKU MORA MD Common Visit Codes: [id number] DISCH DAY >30min KWAKU MORA MD Oct 25, 2024 11:56
[2024-10-25] MEDS: POTASSIUM EFFERVESENT TAB 25 MEQ PO ONE (12:40)
[2024-10-25 13:00] VITALS: BP 153/99; PULSE 68; RESP 17; TEMP 97.9; O2SAT 96
[2024-10-25 13:49] VITALS: BP 130/82; PULSE 73; RESP 18; TEMP 97.9; O2SAT 98
== END 2024-10-25 17:17 | disposition home or self-care (01) | DRG 248 ==
LOC: EDUNIT# 14:59 → EDBD 14:59 → ER 14:59 → OVERFLOW 18:37 → CENTRAL 22:01
PROVIDERS: ADMIT Internal Medicine; ATTEND Internal Medicine
DX: A04.9 Bacterial intestinal infection, unspecified (principal); I11.0 Hypertensive heart disease with heart failure; I50.9 Heart failure, unspecified; E66.3 Overweight; Z95.2 Presence of prosthetic heart valve; E87.6 Hypokalemia; I25.10 Atherosclerotic heart disease of native coronary artery without angina pectoris; F12.10 Cannabis abuse, uncomplicated; Z79.2 Long term (current) use of antibiotics; Z68.28 Body mass index [BMI] 28.0-28.9, adult; Z79.899 Other long term (current) drug therapy
CPT/HCPCS: 36415; 71045; 74176; 80048; 80053; 80307; 81001; 83735; 83880; 84484; 85025; 86141; 96374; 96375; 99291; 99292; G0378; J2003; J2405; J3490